=== PATIENT | female | born 1950 | race Caucasian/White ===

== ENCOUNTER 2017-07-12 14:54 | Emergency (ER) | payer MEDICARE ==
[2017-07-12 16:32] LABS: ABS Basophils 0 10^3/ul (0-0.2); ABS Eosinophils 0.2 10^3/ul (0-0.6); ABS Lymphocytes 1.5 10^3/ul (1.0-4.8); ABS Monocytes 0.7 10^3/ul (0-0.8); ABS Nucleated RBC 0 10^3/ul; Eosinophil % 2.3 % (0-6); Hematocrit 44 % (35-47); Hemoglobin 14.7 g/dl (12.0-16.0); Lymphocyte % 17.5 % (25-47); Mean Corpuscular HGB Conc 34 g/dl (31-36); Mean Corpuscular Hemoglobin 30 pg (27-31); Mean Corpuscular Volume 91 fL (80-97); Mean Platelet Volume 9.3 um3 (7.4-10.4); Nucleated Red Blood Cells % 0; Platelet Count 237 10^3/ul (150-450); Red Blood Count 4.84 10^6/ul (4.0-5.4); Red Cell Distribution Width 13 % (10.5-15); White Blood Count 8.4 10^3/ul (3.5-10.8)
[2017-07-12 16:37] LABS: INR 0.9 (0.77-1.02)
[2017-07-12 16:38] LABS: Urine Appearance Clear; Urine Blood Negative (Negative); Urine Color Straw; Urine Ketones Trace (Negative); Urine Protein Negative (Negative); Urine Specific Gravity 1.004 (1.010-1.030); Urine Urobilinogen Negative (Negative)
--- NOTE | 2017-07-12 16:49 | RAD ---
INDICATION: Slurred speech. COMPARISON: There are no prior studies available for comparison. TECHNIQUE: Contiguous axial sections of the brain were obtained from the skull base to the vertex without contrast. FINDINGS: The ventricles, cisterns and sulci are enlarged consistent with diffuse atrophy. No significant focal abnormality or mass effect is seen. There is no evidence for hemorrhage. No significant focal osseous abnormality is seen. The visualized portion of the paranasal sinuses and mastoid air cells appear clear. IMPRESSION: NO EVIDENCE FOR GROSS ACUTE INFARCT, MASS EFFECT OR HEMORRHAGE.
[2017-07-12 16:53] LABS: EGFR Non-African American 68.4 (>60)
--- NOTE | 2017-07-12 19:25 | ED ---
Zain Stern Jennifer, scribed for Zohaib Chatterjee MD on 07/12/17 at 1532 . Neurological HPI - HPI Summary HPI Summary: The patient is a 66 year old female who presents with slurred speech and unsteady gait since a few hours ago. The patient reports she woke up at 0730 and took her usual medications, as well as some new vitamins she bought on line. She reports that a few hours after taking the vitamins, she began to slur her speech and could not walk steadily. She tried to eat and drink as much as she could to reverse the effects, but her family wanted her to come to the ED. The patient reports she feels fine now in the ED, but her son reports she is still slurring her speech. - History of Current Complaint Chief Complaint: EDNeurologicalDeficit Stated Complaint: SLURRED SPEECH/UNSTEADINESS Hx Obtained From: Patient, Family/Correctional Guard - Son Onset/Duration: Sudden Onset, Started hours ago, Still Present Timing: Constant Onset Severity: Mild Current Severity: Mild Pain Intensity: 0 Pain Scale Used: 0-10 Numeric Character: Other: - slurred speech, unsteady gait Aggravating: Nothing Alleviating: Nothing Associated Signs and Symptoms: Positive: Unsteady Gait, Impaired Speech - Allergy/Home Medications Allergies/Adverse Reactions: Allergies Allergy/AdvReac Type Severity Reaction Status Date / Time No Known Allergies Allergy Verified 07/12/17 15:09 Home Medications: Home Medications Omeprazole CAP* [Prilosec CAP* 20 MG] 40 mg PO BID 07/12/17 [History Confirmed 07/12/17] Venlafaxine ER (NF) [Effexor ER (NF)] 150 mg PO BID 07/12/17 [History Confirmed 07/12/17] clonazePAM TAB(*) [KlonoPIN TAB(*)] 1 mg PO TID PRN 07/12/17 [History Confirmed 07/12/17] risperiDONE TAB* [RisperDAL*] 1 mg PO DAILY 07/12/17 [History Confirmed 07/12/17 ] PMH/Surg Hx/FS Hx/Imm Hx Endocrine/Hematology History: Reports: Hx Blood Disorders - anemia, Hx Anemia GI History: Denies: Hx Jaundice Musculoskeletal History: Reports: Hx Arthritis - knees Sensory History: Reports: Hx Contacts or Glasses Opthamlomology History: Reports: Hx Contacts or Glasses Psychiatric History: Reports: Hx Anxiety, Hx Depression Infectious Disease History: No Infectious Disease History: Denies: Traveled Outside the [place] in Last 30 Days - Family History Known Family History: Negative: Renal Disease - Social History Alcohol Use: None Hx Substance Use: No Substance Use Type: Reports: None Hx Tobacco Use: No Smoking Status (MU): Never Smoked Tobacco Review of Systems Negative: Fever Neurological: Other - Unsteady gait Positive: Slurred Speech All Other Systems Reviewed And Are Negative: Yes Physical Exam - Summary Physical Exam Summary: Appearance: Well-appearing, Well-nourished Skin: Warm Eyes: Normal ENT: Normal Neck: Supple, nontender Respiratory: Clear to auscultation Cardiovascular: Normal S1, S2. No murmurs. Normal distal pulses in tibial and radial bilaterally. Abdomen: Soft, nontender Musculoskeletal: Normal, Strength/ROM Intact Neurological: Normal, A&Ox3. Normal coordination, finger to nose and heel to cheung normal. Strength/sensation of all four extremities. Psychiatric: Normal General: No acute distress Triage Information Reviewed: Yes Vital Signs On Initial Exam: Initial Vitals Temp Pulse Resp BP Pulse Ox 97.4 F 80 16 103/69 94 07/12/17 15:05 07/12/17 15:05 07/12/17 15:05 07/12/17 15:05 07/12/17 15:05 Vital Signs Reviewed: Yes Diagnostics - Vital Signs Vital Signs Temp Pulse Resp BP Pulse Ox 07/12/17 15:05 97.4 F 80 16 103/69 94 - Laboratory Lab Results: Lab Results 07/12/17 07/12/17 07/12/17 Range/Units 16:17 16:17 16:17 WBC 8.4 (3.5-10.8) 10^3/ul RBC 4.84 (4.0-5.4) 10^6/ul Hgb 14.7 (12.0-16.0) g/dl Hct 44 (35-47) % MCV 91 (80-97) fL MCH 30 (27-31) pg MCHC 34 (31-36) g/dl RDW 13 (10.5-15) % Plt Count 237 (150-450) 10^3/ul MPV 9.3 (7.4-10.4) um3 Neut % (Auto) 71.1 (38-83) % Lymph % (Auto) 17.5 L (25-47) % [place] % (Auto) 8.7 H (0-7) % Eos % (Auto) 2.3 (0-6) % Baso % (Auto) 0.4 (0-2) % Absolute Neuts (auto) 6.0 (1.5-7.7) 10^3/ul Absolute Lymphs (auto) 1.5 (1.0-4.8) 10^3/ul Absolute Monos (auto) 0.7 (0-0.8) 10^3/ul Absolute Eos (auto) 0.2 (0-0.6) 10^3/ul Absolute Basos (auto) 0 (0-0.2) 10^3/ul Absolute Nucleated RBC 0 10^3/ul Nucleated RBC % 0 INR (Anticoag Therapy) 0.90 (0.77-1.02) Sodium 136 L (139-145) mmol/L Potassium TNP Chloride 104 (101-111) mmol/L Carbon Dioxide 23 (22-32) mmol/L Anion Gap 9 (2-11) mmol/L BUN 12 (6-24) mg/dL Creatinine 0.83 (0.51-0.95) mg/dL Est GFR ( Amer) 87.9 (>60) Est GFR (Non-Af Amer) 68.4 (>60) BUN/Creatinine Ratio 14.5 (8-20) Glucose 82 (70-100) mg/dL Lactic Acid (0.5-2.0) mmol/L Calcium 10.5 H (8.6-10.3) mg/dL Total Bilirubin 0.40 (0.2-1.0) mg/dL AST TNP ALT 27 (7-52) U/L Alkaline Phosphatase 80 (34-104) U/L Troponin I 0.00 (<0.04) ng/mL Total Protein 7.4 (6.4-8.9) g/dL Albumin 4.3 (3.2-5.2) g/dL Globulin 3.1 (2-4) g/dL Albumin/Globulin Ratio 1.4 (1-3) Urine Color Urine Appearance Urine pH (5-9) Ur Specific [place] (1.010-1.030) Urine Protein (Negative) Urine Ketones (Negative) Urine Blood (Negative) Urine Nitrate (Negative) Urine Bilirubin (Negative) Urine Urobilinogen (Negative) Ur Leukocyte Esterase (Negative) Urine Glucose (Negative) 07/12/17 07/12/17 07/12/17 Range/Units 16:17 16:20 17:41 WBC (3.5-10.8) 10^3/ul RBC (4.0-5.4) 10^6/ul Hgb (12.0-16.0) g/dl Hct (35-47) % MCV (80-97) fL MCH (27-31) pg MCHC (31-36) g/dl RDW (10.5-15) % Plt Count (150-450) 10^3/ul MPV (7.4-10.4) um3 Neut % (Auto) (38-83) % Lymph % (Auto) (25-47) % [place] % (Auto) (0-7) % Eos % (Auto) (0-6) % Baso % (Auto) (0-2) % Absolute Neuts (auto) (1.5-7.7) 10^3/ul Absolute Lymphs (auto) (1.0-4.8) 10^3/ul Absolute Monos (auto) (0-0.8) 10^3/ul Absolute Eos (auto) (0-0.6) 10^3/ul Absolute Basos (auto) (0-0.2) 10^3/ul Absolute Nucleated RBC 10^3/ul Nucleated RBC % INR (Anticoag Therapy) (0.77-1.02) Sodium (139-145) mmol/L Potassium 3.9 Chloride (101-111) mmol/L Carbon Dioxide (22-32) mmol/L Anion Gap (2-11) mmol/L BUN (6-24) mg/dL Creatinine (0.51-0.95) mg/dL Est GFR ( Amer) (>60) Est GFR (Non-Af Amer) (>60) BUN/Creatinine Ratio (8-20) Glucose (70-100) mg/dL Lactic Acid 1.2 (0.5-2.0) mmol/L Calcium (8.6-10.3) mg/dL Total Bilirubin (0.2-1.0) mg/dL AST 23 ALT (7-52) U/L Alkaline Phosphatase (34-104) U/L Troponin I (<0.04) ng/mL Total Protein (6.4-8.9) g/dL Albumin (3.2-5.2) g/dL Globulin (2-4) g/dL Albumin/Globulin Ratio (1-3) Urine Color Straw Urine Appearance Clear Urine pH 6.0 (5-9) Ur Specific [place] 1.004 L (1.010-1.030) Urine Protein Negative (Negative) Urine Ketones Trace A (Negative) Urine Blood Negative (Negative) Urine Nitrate Negative (Negative) Urine Bilirubin Negative (Negative) Urine Urobilinogen Negative (Negative) Ur Leukocyte Esterase Negative (Negative) Urine Glucose Negative (Negative) Result Diagrams: 07/12/17 16:17 07/12/17 17:41 Lab Statement: Any lab studies that have been ordered have been reviewed, and results considered in the medical decision making process. - CT Brain CT CT Interpretation: No Acute Changes - NO EVIDENCE FOR GROSS ACUTE INFARCT, MASS EFFECT OR HEMORRHAGE. Dr. Chatterjee has reviewed this report. CT Interpretation Completed By: Radiologist - EKG 1625 Cardiac Rate: NL EKG Rhythm: Sinus Rhythm - 68 BPM EKG Interpretation: Abnormal R wave progression, early transition, no acute ischemic ST changes Course/Dx - Course Assessment/Plan: Patient feels much better after fluids and workup. The emergency department. CT shows no acute antibodies, vital signs and labs within normal limits, according to herself and her family patient feels and appears much better with improved speech. Patient advised to discontinue use of unknown herbal medication that is the most likely source of her symptoms, patient also instructed to return immediately for any worsening or concerning symptoms at home. Patient remains neurologically intact without any focal neurological deficits. Normal gait here in the ED. Patient will be discharged in care of her family who is able to monitor her symptoms as well. Agrees to and understnads discharge instructions. - Diagnoses Provider Diagnoses: Drug side effects Discharge - Sign-Out/Discharge Documenting (check all that apply): Discharge/Admit/Transfer - Discharge Plan Condition: Improved Disposition: HOME [facility] Referrals: Tracy Red MD [Primary Care Provider] - Additional Instructions: PLEASE DISCONTINUE USE OF HERBAL SUPPLEMENTS PLEASE RETURN TO THE EMERGENCY ROOM IF YOU HAVE ANY WORSENING OR CONCERNING SYMPTOMS PLEASE MAKE AN APPOINTMENT FIRST THING IN THE MORNING TO BE SEEN BY YOUR PRIMARY CARE DOCTOR WITHIN 1 WEEK - Billing Disposition and Condition Condition: IMPROVED Disposition: HOME The documentation as recorded by the Zain navas Jennifer accurately reflects the service I personally performed and the decisions made by me, Zohaib Chatterjee MD.
[2017-07-12 19:40] VITALS: BP 109/74
== END 2017-07-12 19:38 | disposition home or self-care (01) ==
LOC: ED 14:54
DX: R47.81 Slurred speech (principal); R26.81 Unsteadiness on feet; T45.2X5A Adverse effect of vitamins, initial encounter
CPT/HCPCS: 36415; 70450; 80053; 81003; 83605; 84484; 85025; 85610; 93005; 99284

== ENCOUNTER 2017-07-21 10:59 | Emergency (ER) | payer MEDICARE ==
[2017-07-21] MEDS ORDERED: NS 0.9% 1000 ML* 1,000 ML IV ONE (11:25)
[2017-07-21] MEDS ORDERED: Acetaminophen TAB* 325 MG PO ONE (11:27)
--- NOTE | 2017-07-21 11:59 | RAD ---
HISTORY: Dizziness, weakness COMPARISONS: July 12, 2017 TECHNIQUE: Multiple contiguous axial CT scans were obtained of the head without intravenous contrast. FINDINGS: HEMORRHAGE/INFARCT: There is no hemorrhage or acute infarct. MASSES/SHIFT: There is no mass or shift. EXTRA-AXIAL SPACES: There are no extra-axial fluid collections. SULCI AND VENTRICLES: The sulci and ventricles are normal in size and position for the patient's stated age. CEREBRUM: There are no focal parenchymal abnormalities. BRAINSTEM: There are no focal parenchymal abnormalities. CEREBELLUM: There are no focal parenchymal abnormalities. VESSELS: The vessels are grossly normal. PARANASAL SINUSES: The paranasal sinuses are clear. ORBITS: The orbits are unremarkable. BONES AND SOFT TISSUE: No bone or soft tissue abnormalities are noted. OTHER: None IMPRESSION: NO ACUTE INTRACRANIAL PATHOLOGY.
--- NOTE | 2017-07-21 12:12 | RAD ---
HISTORY: Weakness COMPARISONS: September 08, 2015 VIEWS: 1: frontal portable view of the chest at 12:03 PM FINDINGS: LINES AND TUBES: None. CARDIOMEDIASTINAL SILHOUETTE: The cardiomediastinal silhouette is normal for portable technique and phase of respiration. PLEURA: The costophrenic angles are sharp. No pleural abnormalities are noted. LUNG PARENCHYMA: The lung volumes are low. The lungs are clear accounting for the phase of respiration. ABDOMEN: The upper abdomen is clear. There is no subphrenic gas. BONES AND SOFT TISSUES: No bone or soft tissue abnormalities are noted. IMPRESSION: LOW LUNG VOLUMES. NO ACTIVE CARDIOPULMONARY DISEASE.
[2017-07-21 12:17] LABS: ABS Basophils 0 10^3/ul (0-0.2); ABS Eosinophils 0.1 10^3/ul (0-0.6); ABS Lymphocytes 1.6 10^3/ul (1.0-4.8); ABS Monocytes 0.4 10^3/ul (0-0.8); ABS Neutrophils 3.3 10^3/ul (1.5-7.7); ABS Nucleated RBC 0 10^3/ul; Eosinophil % 2.1 % (0-6); Hematocrit 43 % (35-47); Hemoglobin 14.1 g/dl (12.0-16.0); Lymphocyte % 29.9 % (25-47); Mean Corpuscular HGB Conc 33 g/dl (31-36); Mean Corpuscular Hemoglobin 30 pg (27-31); Mean Corpuscular Volume 90 fL (80-97); Mean Platelet Volume 9.1 um3 (7.4-10.4); Nucleated Red Blood Cells % 0.1; Platelet Count 239 10^3/ul (150-450); Red Blood Count 4.72 10^6/ul (4.0-5.4); Red Cell Distribution Width 13 % (10.5-15); White Blood Count 5.4 10^3/ul (3.5-10.8)
[2017-07-21 12:26] LABS: INR 0.82 (0.77-1.02)
[2017-07-21] MEDS ORDERED: Potassium Chlor TAB* 20 MEQ TAB.ER PO ONE (12:48)
[2017-07-21 13:35] LABS: Urine Appearance Clear; Urine Blood Negative (Negative); Urine Color Straw; Urine Ketones Negative (Negative); Urine Protein Negative (Negative); Urine Specific Gravity 1.002 (1.010-1.030); Urine Urobilinogen Negative (Negative)
[2017-07-21 14:12] VITALS: BP 118/73
--- NOTE | 2017-07-21 15:39 | ED ---
Rico Stern Stephanie, scribed for Asher Campos on 07/21/17 at 1130 . Complex/Multi-Sys Presentation - HPI Summary HPI Summary: The pt is a 66 y/o F presenting to the ED with c/o weakness since last night. Symptoms include dizziness, vomiting (last night) and lower throat pain. She denies hematemesis, abd pain and blood in stools. The pt states she stood up and fell to the ground. She reports that recently she has been having difficulty standing due to chronic knee problems. The pt recently returned from [place]. - History Of Current Complaint Chief Complaint: EDWeakness Time Seen by Provider: 07/21/17 11:12 Hx Obtained From: Patient, Family/Egg Setter - Onset/Duration: Sudden Onset, Lasting Days - 1, Still Present Timing: Constant Severity Currently: Moderate Aggravating Factor(s): Nothing Alleviating Factor(s): Nothing Associated Signs And Symptoms: Positive: Dizziness, Weakness, Vomiting, Other - Negative: blood in stool. Negative: Abdominal Pain, Hematemesis - Allergies/Home Medications Allergies/Adverse Reactions: Allergies Allergy/AdvReac Type Severity Reaction Status Date / Time No Known Allergies Allergy Verified 07/21/17 11:07 PMH/Surg Hx/FS Hx/Imm Hx Endocrine/Hematology History: Reports: Hx Blood Disorders - anemia, Hx Anemia GI History: Denies: Hx Jaundice Musculoskeletal History: Reports: Hx Arthritis - knees Sensory History: Reports: Hx Contacts or Glasses Opthamlomology History: Reports: Hx Contacts or Glasses Psychiatric History: Reports: Hx Anxiety, Hx Depression - Surgical History Surgery Procedure, Year, and Place: NONE Infectious Disease History: No Infectious Disease History: Reports: Traveled Outside the [place] in Last 30 Days - [place] - Family History Known Family History: Negative: Renal Disease - Social History Occupation: Retired Lives: With Family Alcohol Use: None Hx Substance Use: No Substance Use Type: Reports: None Hx Tobacco Use: No Smoking Status (MU): Never Smoked Tobacco Have You Smoked in the Last Year: No Review of Systems Positive: Fever Positive: Other - lower throat pain Gastrointestinal: Negative - hematemesis, blood in stools Positive: Vomiting. Negative: Abdominal Pain Neurological: Other - dizziness Positive: Weakness All Other Systems Reviewed And Are Negative: Yes Physical Exam - Summary Physical Exam Summary: Appearance: Mildly ill-appearing, lethargic, no pain distress Skin: warm, dry, reflects adequate perfusion Head/face: normal Eyes: EOMI, EDILIA ENT: Dry mucous membranes Neck: supple, non-tender Respiratory: CTA, breath sounds present Cardiovascular: RRR, pulses symmetrical Abdomen: non-tender, soft Bowel: present Musculoskeletal: normal, strength/ROM intact Neuro: normal, sensory motor intact, A&Ox3 Triage Information Reviewed: Yes Vital Signs On Initial Exam: Initial Vitals Temp Pulse Resp BP Pulse Ox 100.1 F 70 16 112/70 92 07/21/17 11:06 07/21/17 11:06 07/21/17 11:06 07/21/17 11:06 07/21/17 11:06 Vital Signs Reviewed: Yes Diagnostics - Vital Signs Vital Signs Temp Pulse Resp BP Pulse Ox 07/21/17 11:06 100.1 F 70 16 112/70 92 - Laboratory Lab Results: Lab Results 07/21/17 07/21/17 07/21/17 Range/Units 11:38 12:09 12:09 WBC 5.4 (3.5-10.8) 10^3/ul RBC 4.72 (4.0-5.4) 10^6/ul Hgb 14.1 (12.0-16.0) g/dl Hct 43 (35-47) % MCV 90 (80-97) fL MCH 30 (27-31) pg MCHC 33 (31-36) g/dl RDW 13 (10.5-15) % Plt Count 239 (150-450) 10^3/ul MPV 9.1 (7.4-10.4) um3 Neut % (Auto) 60.5 (38-83) % Lymph % (Auto) 29.9 (25-47) % [place] % (Auto) 7.0 (0-7) % Eos % (Auto) 2.1 (0-6) % Baso % (Auto) 0.5 (0-2) % Absolute Neuts (auto) 3.3 (1.5-7.7) 10^3/ul Absolute Lymphs (auto) 1.6 (1.0-4.8) 10^3/ul Absolute Monos (auto) 0.4 (0-0.8) 10^3/ul Absolute Eos (auto) 0.1 (0-0.6) 10^3/ul Absolute Basos (auto) 0 (0-0.2) 10^3/ul Absolute Nucleated RBC 0 10^3/ul Nucleated RBC % 0.1 INR (Anticoag Therapy) 0.82 (0.77-1.02) APTT 31.2 (26.0-36.3) seconds Sodium 139 (139-145) mmol/L Potassium 3.2 L (3.5-5.0) mmol/L Chloride 109 (101-111) mmol/L Carbon Dioxide 23 (22-32) mmol/L Anion Gap 7 (2-11) mmol/L BUN 8 (6-24) mg/dL Creatinine 0.74 (0.51-0.95) mg/dL Est GFR ( Amer) 100.4 (>60) Est GFR (Non-Af Amer) 78.0 (>60) BUN/Creatinine Ratio 10.8 (8-20) Glucose 80 (70-100) mg/dL Lactic Acid (0.5-2.0) mmol/L Calcium 9.6 (8.6-10.3) mg/dL Total Bilirubin 0.40 (0.2-1.0) mg/dL AST 29 (13-39) U/L ALT 32 (7-52) U/L Alkaline Phosphatase 67 (34-104) U/L Troponin I 0.00 (<0.04) ng/mL Total Protein 6.4 (6.4-8.9) g/dL Albumin 3.6 (3.2-5.2) g/dL Globulin 2.8 (2-4) g/dL Albumin/Globulin Ratio 1.3 (1-3) Lipase 10 L (11.0-82.0) U/L Urine Color Urine Appearance Urine pH (5-9) Ur Specific [place] (1.010-1.030) Urine Protein (Negative) Urine Ketones (Negative) Urine Blood (Negative) Urine Nitrate (Negative) Urine Bilirubin (Negative) Urine Urobilinogen (Negative) Ur Leukocyte Esterase (Negative) Urine Glucose (Negative) Group A Strep Rapid (Negative) 07/21/17 07/21/17 07/21/17 Range/Units 12:09 13:24 13:25 WBC (3.5-10.8) 10^3/ul RBC (4.0-5.4) 10^6/ul Hgb (12.0-16.0) g/dl Hct (35-47) % MCV (80-97) fL MCH (27-31) pg MCHC (31-36) g/dl RDW (10.5-15) % Plt Count (150-450) 10^3/ul MPV (7.4-10.4) um3 Neut % (Auto) (38-83) % Lymph % (Auto) (25-47) % [place] % (Auto) (0-7) % Eos % (Auto) (0-6) % Baso % (Auto) (0-2) % Absolute Neuts (auto) (1.5-7.7) 10^3/ul Absolute Lymphs (auto) (1.0-4.8) 10^3/ul Absolute Monos (auto) (0-0.8) 10^3/ul Absolute Eos (auto) (0-0.6) 10^3/ul Absolute Basos (auto) (0-0.2) 10^3/ul Absolute Nucleated RBC 10^3/ul Nucleated RBC % INR (Anticoag Therapy) (0.77-1.02) APTT (26.0-36.3) seconds Sodium (139-145) mmol/L Potassium (3.5-5.0) mmol/L Chloride (101-111) mmol/L Carbon Dioxide (22-32) mmol/L Anion Gap (2-11) mmol/L BUN (6-24) mg/dL Creatinine (0.51-0.95) mg/dL Est GFR ( Amer) (>60) Est GFR (Non-Af Amer) (>60) BUN/Creatinine Ratio (8-20) Glucose (70-100) mg/dL Lactic Acid 0.9 (0.5-2.0) mmol/L Calcium (8.6-10.3) mg/dL Total Bilirubin (0.2-1.0) mg/dL AST (13-39) U/L ALT (7-52) U/L Alkaline Phosphatase (34-104) U/L Troponin I (<0.04) ng/mL Total Protein (6.4-8.9) g/dL Albumin (3.2-5.2) g/dL Globulin (2-4) g/dL Albumin/Globulin Ratio (1-3) Lipase (11.0-82.0) U/L Urine Color Straw Urine Appearance Clear Urine pH 6.0 (5-9) Ur Specific [place] 1.002 L (1.010-1.030) Urine Protein Negative (Negative) Urine Ketones Negative (Negative) Urine Blood Negative (Negative) Urine Nitrate Negative (Negative) Urine Bilirubin Negative (Negative) Urine Urobilinogen Negative (Negative) Ur Leukocyte Esterase Negative (Negative) Urine Glucose Negative (Negative) Group A Strep Rapid Negative (Negative) Result Diagrams: 07/21/17 12:09 07/21/17 11:38 Lab Statement: Any lab studies that have been ordered have been reviewed, and results considered in the medical decision making process. - Radiology CXR Xray Interpretation: No Acute Changes Radiology Interpretation Completed By: Radiologist - LOW LUNG VOLUMES. NO ACTIVE CARDIOPULMONARY DISEASE. ED physician has reviewed this report. - CT Brain CT Interpretation: No Acute Changes CT Interpretation Completed By: Radiologist - NO ACUTE INTRACRANIAL PATHOLOGY. ED physician has reviewed this report. 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 Non-Paretic Hand: Both Correctly Best Gaze (Only Horizontal Eye Movement): Normal Visual Field Testing: No Visual Loss Facial Paresis-Pt to Smile & Close Eyes or Grimace Symmetry: Normal/Symmetrical Motor Function - Right Arm: No Drift-Holds 10 Seconds Motor Function - Left Arm: No Drift-Holds 10 Seconds Motor Function - Right Leg: No Drift-Holds 10 Seconds Motor Function - Left Leg: No Drift-Holds 10 Seconds Limb Ataxia-Must be out of Proportion to Weakness Present: Absent Sensory (Use Pinprick to Test Arms/Legs/Trunk/Face): Normal Best Language (Describe Picture, Name Items): No Aphasia Dysarthria (Read Several Words): Normal Extinction and Inattention: No Abnormality Total Score: 0 Re-Evaluation - Re-Evaluation First Eval Re-Evaluation Time: 13:54 Change: Unchanged - Per , the pt is experiencing slurred speech. ED physician recommended admission for the pt however, the pt and her desire to go home. Complex Multi-Symp Course/Dx Course Of Treatment: The pt is a 66 y/o F presenting to the ED with c/o weakness since last night. Symptoms include dizziness, vomiting (last night) and lower throat pain. Per , the pt was experiencing slurred speech. ED physician advised the pt stay for admission into the hospital but the pt and her desire to leave against medical advise. - Diagnoses Differential Diagnoses/HQI/PQRI: Cardiac Ischemia, CVA, Metabolic Abnormality, Sepsis, Urinary Tract Infection Provider Diagnoses: Fever, Left against medical advice, TIA (transient ischemic attack), Dizziness Discharge - Sign-Out/Discharge Documenting (check all that apply): Discharge/Admit/Transfer - leave AMA - Discharge Plan Condition: Stable Disposition: AGAINST MEDICAL ADVICE Patient Education Materials: Transient Ischemic Attack (ED), Fever in Adults ( ED), Dizziness (ED) Referrals: Can Dawson MD [Primary Care Provider] - 3 Days Additional Instructions: Return to ED for new or worsening symptoms. - Billing Disposition and Condition Condition: STABLE Disposition: AMA The documentation as recorded by the Rico navas Stephanie accurately reflects the service I personally performed and the decisions made by Beth bah Emmanuel.
== END 2017-07-21 14:13 | disposition left against medical advice (07) ==
LOC: ED 10:59
DX: G45.9 Transient cerebral ischemic attack, unspecified (principal); R42 Dizziness and giddiness; R50.9 Fever, unspecified; Z53.21 Procedure and treatment not carried out due to patient leaving prior to being seen by health care provider
CPT/HCPCS: 36415; 70450; 71045; 80053; 81003; 83605; 83690; 84484; 85025; 85610; 85730; 87651; 93005; 99283; A9270-GY